=== PATIENT | female | born 1945 | race Caucasian/White ===

== ENCOUNTER → 2017-05-04 | Outpatient (CLI) | payer MEDICARE, OTHER ==
[~2017-05-04] MED LIST: ASPI81TA50 PO; ESTR0.3T PO; calcium; fishoil; multivitamin
== END | disposition home or self-care (01) ==
LOC: CFH 10:16
PROVIDERS: ATTEND Internal Medicine
DX: Z13.820 Encounter for screening for osteoporosis (principal); N95.9 Unspecified menopausal and perimenopausal disorder; C50.411 Malignant neoplasm of upper-outer quadrant of right female breast
CPT/HCPCS: 77080

== ENCOUNTER → 2018-09-01 | Outpatient (CLI) | payer MEDICARE, OTHER ==
[~2018-09-01] MED LIST changes: +PENICILLIN; +TRAM100T33 PO
== END | disposition home or self-care (01) ==
LOC: CFH 14:10
PROVIDERS: ATTEND Emergency Medicine
DX: M22.42 Chondromalacia patellae, left knee (principal); M25.462 Effusion, left knee; M10.9 Gout, unspecified; R60.0 Localized edema

== ENCOUNTER 2019-01-22 15:42 | Emergency (ER) | payer MEDICARE, OTHER ==
[~2019-01-22] VITALS: Ht 165.1 cm; Wt 81.5 kg
[2019-01-22 15:55] VITALS: BP 181/94
[2019-01-22] MEDS ORDERED: OXYcodone/APAP 5/325MG TABLET ONE ×2 (16:24→16:36)
[2019-01-22] MEDS ORDERED: OXYcodone/APAP 5/325MG TABLET PO ONE (16:30)
--- NOTE | 2019-01-22 16:30 | NUR ---
PT INJURED RIGHT WRIST, GLF. NO SWELLING NOTED. PT HOLDING ARM FOR SUPPORT
--- NOTE | 2019-01-22 17:07 | NUR ---
PT STATES PAIN IMPROVED SINCE MEDICATED FOR SAME AND SPLINT APPLIED. AMBULATED TO DISCHARGE WINDOW, STEADY GAIT
== END 2019-01-22 17:09 | disposition home or self-care (01) ==
LOC: ED 17:00
DX: S63.521A Sprain of radiocarpal joint of right wrist, initial encounter (principal); W01.0XXA Fall on same level from slipping, tripping and stumbling without subsequent striking against object, initial encounter; Y93.89 Activity, other specified; Y92.009 Unspecified place in unspecified non-institutional (private) residence as the place of occurrence of the external cause; Y99.8 Other external cause status; K21.9 Gastro-esophageal reflux disease without esophagitis; Z85.9 Personal history of malignant neoplasm, unspecified
CPT/HCPCS: 29260; 99283